=== PATIENT | female | born 1945 | race Caucasian/White ===

== ENCOUNTER → 2018-02-20 09:36 | Outpatient (CLI) | payer MEDICARE, OTHER, SELFPAY ==
--- NOTE | 2018-02-20 09:39 | XR_ITS ---
XR DEXA axial skeleton HISTORY: ITS.REASON: OSTEOPOROSIS, CKD 4 ORDERING PHYSICIAN: Mayco Cook PATIENT AGE: 72 years COMPARISON: 01/29/2017 FINDINGS: The BMD measured at the left femur neck is 0.610 g/cm squared with a T score of -3.0. This is considered Osteoporotic according to the World Health Organization criteria. Fracture risk is High. Treatment is advised. The left hip density has decreased by 7% compared to the previous exam. The L1 L4 density has T score of -1.9 and has increased by 2% IMPRESSION: Osteoporosis with high fracture risk. Treatment suggested. Recommend follow-up exam February 2019
[2018-02-20 12:13] LABS: Albumin Level 4.5 gm/dL (3.4-5.0); Anion Gap 14.3 mEq/L (5-15); Blood Urea Nitrogen 35 mg/dL (7-18); Carbon Dioxide 27 mmol/L (21.0-32.0); Chloride 102 mmol/L (98-107); Estimated Glomerular Filt Rate 19 ml/min (>60); GFR (African American) 23 ML/MIN (>60); Glucose 158 mg/dL (74-106); Phosphorous 4.1 mg/dL (2.4-4.9); Potassium 4.3 mmoL/L (3.5-5.1); Sodium 139 mmol/L (136-145)
[2018-02-21 18:28] LABS: Vitamin D 25 Hydroxy 38.7 ng/mL (30.0-100.0)
[2018-02-24 08:29] LABS: Calcium, Ionized 5.5 mg/dL (4.5-5.6); Parathyroid Hormone Intact 22 pg/mL (15-65); Tandem-R Ostase 17.4 ug/L (.)
== END ==
PROVIDERS: PCP Family Medicine; Visit Provider Internal Medicine Nephrology
DX: M81.0 Age-related osteoporosis without current pathological fracture (principal); N18.4 Chronic kidney disease, stage 4 (severe)
CPT/HCPCS: 36415; 77080; 80069; 82330; 82652; 83970; 84080

== ENCOUNTER → 2018-03-02 14:29 | Outpatient (POV) | payer MEDICARE, OTHER, SELFPAY | PROVIDERS: PCP Family Medicine; Visit Provider Internal Medicine Nephrology | DX: Z00.00 Encounter for general adult medical examination without abnormal findings (principal) ==

== ENCOUNTER 2018-03-25 10:50 | Outpatient (CLI) | payer MEDICARE, OTHER, SELFPAY ==
[2018-03-25 11:05] VITALS: BP 157/66; PULSE 65; RESP 18; TEMP 36.9; O2SAT 98
== END 2018-03-25 11:25 | disposition home or self-care (01) ==
LOC: INF 10:54
PROVIDERS: Visit Provider Internal Medicine Nephrology
DX: M81.0 Age-related osteoporosis without current pathological fracture (principal)
CPT/HCPCS: 96372; J0897

== ENCOUNTER → 2018-07-14 11:55 | Outpatient (CLI) | payer MEDICARE, SELFPAY ==
[2018-07-14 12:01] LABS: Microscopic, Urine URINE MICROSCOPIC (MICROSCOPIC)
[2018-07-14 12:32] LABS: Basophils % 0.4 % (0.1-2.0); Eosinophils # 0.2 K/mm3 (0.0-0.4); Eosinophils % 2.5 % (0.1-12.0); Hematocrit 43.8 % (37.0-47.0); Hemoglobin 13.4 g/dL (12.2-16.2); Lymphocytes # 2.7 K/mm3 (0.7-4.5); Lymphocytes % 32.9 % (10-50); Mean Corpuscular HGB Conc 30.6 g/dL (31.8-35.4); Mean Corpuscular Hemoglobin 29.8 pg (27.0-31.2); Mean Corpuscular Volume 97.3 fl (81-99); Mean Platelet Volume 7.4 fl (7.4-10.4); Monocytes # 0.6 K/mm3 (0.1-1.0); Monocytes % 7.8 % (1.7-9.3); Neutrophils # 4.6 K/mm3 (1.8-7.8); Neutrophils % 56.4 % (37.0-80.0); Platelet Count 394 K/mm3 (142-424); Red Blood Count 4.51 M/mm3 (4.20-5.40); Red Cell Distribution Width 13.8 % (11.5-17.5); White Blood Count 8.1 K/mm3 (4.8-10.8)
[2018-07-14 13:13] LABS: Appearance,Urine CLEAR (Clear); Bilirubin,Urine Negative (Negative); Blood, Urine Negative (Negative); Color,Urine YELLOW (Yellow); Glucose,Urine (UA) Negative (Negative); Ketones,Urine Negative (Negative); Leukocyte Esterase,Urine Negative (Negative); Nitrate,Urine Negative (Negative); PH,Urine 6.5 (5.0-8.5); Protein,Urine Negative (Negative); Specific Gravity, Urine <= 1.005 (1.005-1.030); Urobilinogen,Urine 0.2 EU/dl (0.2)
[2018-07-14 13:19] LABS: Creatinine,Urine Random 78 mg/dL (20-320); Total Protein,Urine Random 9.6 mg/dL (0.0-11.9)
[2018-07-14 13:25] LABS: Bacteria,Urine Trace /lpf; Squamous Epithelial Cell,Urine Occasional #/hpf (0-5)
[2018-07-14 14:24] LABS: Albumin Level 3.8 gm/dL (3.4-5.0); Anion Gap 13.3 mEq/L (5-15); Blood Urea Nitrogen 21 mg/dL (7-18); Calcium 8.9 mg/dL (8.5-10.1); Carbon Dioxide 27 mmol/L (21.0-32.0); Chloride 102 mmol/L (98-107); Creatinine,Serum 1.67 mg/dL (0.55-1.02); Estimated Glomerular Filt Rate 30 ml/min (>60); GFR (African American) 36 ML/MIN (>60); Glucose 180 mg/dL (74-106); Phosphorous 2.7 mg/dL (2.4-4.9); Potassium 4.3 mmoL/L (3.5-5.1); Sodium 138 mmol/L (136-145)
== END ==
PROVIDERS: Visit Provider Internal Medicine Nephrology
DX: N18.4 Chronic kidney disease, stage 4 (severe) (principal)
CPT/HCPCS: 36415; 80069; 81001; 82570; 84155; 85025

== ENCOUNTER → 2018-07-20 14:26 | Outpatient (POV) | payer MEDICARE, OTHER, SELFPAY | PROVIDERS: Visit Provider Internal Medicine Nephrology | DX: Z00.00 Encounter for general adult medical examination without abnormal findings (principal) ==

== ENCOUNTER → 2018-11-13 11:31 | Outpatient (CLI) | payer MEDICARE, SELFPAY ==
[2018-11-13 11:40] LABS: Microscopic, Urine URINE MICROSCOPIC (MICROSCOPIC)
[2018-11-13 12:05] LABS: Creatinine,Urine Random 40 mg/dL (20-320); Total Protein,Urine Random 12.8 mg/dL (0.0-11.9)
[2018-11-13 12:08] LABS: Basophils % 0.5 % (0.1-2.0); Eosinophils # 0.1 K/mm3 (0.0-0.4); Eosinophils % 1.3 % (0.1-12.0); Hematocrit 43.6 % (37.0-47.0); Hemoglobin 13.5 g/dL (12.2-16.2); Lymphocytes # 2.8 K/mm3 (0.7-4.5); Lymphocytes % 32.8 % (10-50); Mean Corpuscular Hemoglobin 29.7 pg (27.0-31.2); Mean Corpuscular Volume 96.1 fl (81-99); Mean Platelet Volume 7.7 fl (7.4-10.4); Monocytes # 0.5 K/mm3 (0.1-1.0); Monocytes % 6.1 % (1.7-9.3); Neutrophils # 5.1 K/mm3 (1.8-7.8); Neutrophils % 59.3 % (37.0-80.0); Platelet Count 333 K/mm3 (142-424); Red Blood Count 4.54 M/mm3 (4.20-5.40); Red Cell Distribution Width 14.4 % (11.5-17.5); White Blood Count 8.7 K/mm3 (4.8-10.8)
[2018-11-13 12:21] LABS: Appearance,Urine CLEAR (Clear); Bilirubin,Urine Negative (Negative); Blood, Urine Negative (Negative); Color,Urine STRAW (Yellow); Glucose,Urine (UA) Negative (Negative); Ketones,Urine Negative (Negative); Leukocyte Esterase,Urine 2+ (Negative); Nitrate,Urine Negative (Negative); Protein,Urine Negative (Negative); Urobilinogen,Urine 0.2 EU/dl (0.2)
[2018-11-13 12:30] LABS: Bacteria,Urine Trace /lpf; Squamous Epithelial Cell,Urine Occasional #/hpf (0-5)
[2018-11-13 13:23] LABS: Anion Gap 15.2 mEq/L (5-15); Blood Urea Nitrogen 21 mg/dL (7-18); Calcium 9.6 mg/dL (8.5-10.1); Carbon Dioxide 28 mmol/L (21.0-32.0); Chloride 102 mmol/L (98-107); Creatinine,Serum 1.53 mg/dL (0.55-1.02); Estimated Glomerular Filt Rate 33 ml/min (>60); GFR (African American) 40 ML/MIN (>60); Glucose 115 mg/dL (74-106); Phosphorous 3.9 mg/dL (2.4-4.9); Potassium 4.2 mmoL/L (3.5-5.1); Sodium 141 mmol/L (136-145)
[2018-11-14 10:48] LABS: Vitamin D 25 Hydroxy 47.1 ng/mL (30.0-100.0)
[2018-11-15 17:07] LABS: Parathyroid Hormone Intact 24 pg/mL (15-65)
[2018-11-20 06:16] LABS: Osteocalcin 29.5 ng/mL (.)
[2018-11-20 06:18] LABS: Tandem-R Ostase 26.7 ug/L (.)
== END ==
PROVIDERS: Visit Provider Internal Medicine Nephrology
DX: M81.0 Age-related osteoporosis without current pathological fracture (principal); N18.4 Chronic kidney disease, stage 4 (severe); R82.90 Unspecified abnormal findings in urine; R00.0 Tachycardia, unspecified
CPT/HCPCS: 36415; 80069; 81001; 82523; 82570; 82652; 83937; 83970; 84080; 84155; 85025; 87086; 93270

== ENCOUNTER → 2018-11-25 13:48 | Outpatient (POV) | payer MEDICARE, OTHER, SELFPAY | PROVIDERS: Visit Provider Internal Medicine Nephrology | DX: Z00.00 Encounter for general adult medical examination without abnormal findings (principal) ==

== ENCOUNTER → 2019-02-02 14:08 | Outpatient (POV) | payer MEDICARE, SELFPAY | PROVIDERS: Visit Provider Dermatology | DX: Z00.00 Encounter for general adult medical examination without abnormal findings (principal) ==

== ENCOUNTER → 2019-04-02 12:08 | Outpatient (CLI) | payer MEDICARE, SELFPAY ==
--- NOTE | 2019-04-02 12:14 | XR_ITS ---
PROCEDURE: XR ANKLE LT MIN 3V CLINICAL INDICATION: LT ANKLE PAIN injury 3 weeks ago COMPARISON: No exams were available for comparison FINDINGS: The medial and lateral malleolus appear intact. There is no evidence of acute or old fracture. The ankle mortise is grossly normal. There is mild diffuse soft tissue swelling about the ankle both medially and laterally. There are small spurs of the calcaneus at the insertion of the plantar tendon and Achilles tendon. IMPRESSION: Mild soft tissue swelling, small calcaneal spurs as noted Dictated by: Dr. Madhav Oropeza MD 04/02/2019 12:[address] Madhav Oropeza MD in [place] 04/02/2019 12:31
== END ==
PROVIDERS: PCP Family Medicine; Visit Provider Family Medicine
DX: M25.572 Pain in left ankle and joints of left foot (principal)
CPT/HCPCS: 73610

== ENCOUNTER → 2019-05-03 10:42 | Outpatient (CLI) | payer MEDICARE, SELFPAY ==
--- NOTE | 2019-05-03 10:48 | CA_ITS ---
APPROVED REPORT Division Operations Manager: RACHEL Laterality: Bilateral Study Quality: Good Indications: CVA/TIA: , Carotid stenosis Doppler Spectral Velocity Analysis dICA (R) 64.20/14.50 cm/s dICA (L) 94.40/27.90 cm/s Tanner (R) 107.00/23.90 cm/s Tanner (L) 86.10/20.30 cm/s pICA (R) 99.70/20.80 cm/s pICA (L) 63.70/12.40 cm/s dCCA (R) 67.40/14.10 cm/s dCCA (L) 64.00/11.90 cm/s pCCA (R) 83.40/14.40 cm/s pCCA (L) 104.80/18.70 cm/s Vert (R) 36.50/8.40 cm/s Vert (L) 29.50/4.90 cm/s ICA/CCA 1.59 ICA/CCA 1.48 Findings Duplex evaluation demonstrates stenosis of the right proximal internal carotid artery <20% with PSV <140 cm/sec, EDV <100 cm/sec, and IC/CC Ratio <4.0.Duplex evaluation demonstrates stenosis of the left proximal internal carotid artery <20% with PSV <140 cm/sec, EDV <100 cm/sec, and IC/CC Ratio <4.0.Antegrade flow seen bilateral vertebral arteries. Conclusion No increased velocities to suggest hemodynamically significant stenosis in either internal carotid artery. Electronically signed by : Cain Millard MD 05/05/2019 19:17:44
== END ==
PROVIDERS: PCP Family Medicine; Visit Provider Family Medicine
DX: R42 Dizziness and giddiness (principal); I65.23 Occlusion and stenosis of bilateral carotid arteries; Z86.73 Personal history of transient ischemic attack (TIA), and cerebral infarction without residual deficits
CPT/HCPCS: 93880

== ENCOUNTER → 2020-01-17 08:38 | Outpatient (CLI) | payer MEDICARE, SELFPAY ==
--- NOTE | 2020-01-17 08:41 | XR_ITS ---
PROCEDURE: XR DEXA AXIAL SKELETON CLINICAL HISTORY: OSTEOPOROSIS COMPARISON: CR,DX DEXAAX XR DEXA axial skeleton from 02/20/2018 FINDINGS: The right forearm BMD is 0.419 with a t-score of -4.6. The left hip BMD is 0.520 with a t-score of -3.0. The lumbar spine BMD is 0.788 with a t-score of -2.4. Previously the T-score of the lumbar spine with -1.9, left femoral neck -3.0, radius 33 percent -4.4 IMPRESSION: Osteoporosis. High fracture risk. Treatment advised. Suggest follow-up exam in 1 year. Overall the bone marrow density is slightly decreased compared to the previous exam Dictated b Cain Millard MD 01/18/2020 12:22 Cain Millard MD in [place] 01/18/2020 12:22
== END ==
PROVIDERS: PCP Family Medicine; Visit Provider Internal Medicine Nephrology
DX: M81.0 Age-related osteoporosis without current pathological fracture (principal)
CPT/HCPCS: 77080

== ENCOUNTER → 2020-04-13 15:31 | Outpatient (CLI) | payer MEDICARE, SELFPAY ==
[2020-04-13 15:37] LABS: Microscopic, Urine URINE MICROSCOPIC (MICROSCOPIC)
[2020-04-13 16:08] LABS: Appearance,Urine CLEAR (Clear); Bilirubin,Urine Negative (Negative); Blood, Urine Negative (Negative); Color,Urine YELLOW (Yellow); Glucose,Urine (UA) Negative (Negative); Ketones,Urine Negative (Negative); Leukocyte Esterase,Urine 2+ (Negative); Nitrate,Urine Negative (Negative); Protein,Urine Negative (Negative); Urobilinogen,Urine 0.2 EU/dl (0.2)
[2020-04-13 16:15] LABS: Bacteria,Urine 1+ /lpf
[2020-04-13 16:18] LABS: Creatinine,Urine Random 13 mg/dL (Not Estab.)
[2020-04-13 16:56] LABS: Albumin Level 4.8 g/dl (3.5-5.0); Anion Gap 14.8 mEq/L (5-15); Blood Urea Nitrogen 21 mg/dl (7-17); Carbon Dioxide 30 mmol/L (22.0-30.0); Chloride 99 mmol/L (98-107); Estimated Glomerular Filt Rate 40 ml/min (>60); GFR (African American) 48 ML/MIN (>60); Glucose 76 mg/dl (74-100); Phosphorous 4.3 mg/dl (2.5-4.5); Potassium 3.8 mmoL/L (3.5-5.1); Sodium 140 mmol/L (136-145)
[2020-04-13 16:57] LABS: Basophils # 0.1 K/mm3 (0-0.2); Basophils % 0.7 % (0.1-2.0); Eosinophils # 0.1 K/mm3 (0.0-0.4); Eosinophils % 1.3 % (0.1-12.0); Hematocrit 43.2 % (37.0-47.0); Hemoglobin 14.3 g/dL (12.2-16.2); Lymphocytes # 3.6 K/mm3 (0.7-4.5); Lymphocytes % 37.7 % (10-50); Mean Corpuscular HGB Conc 33.2 g/dL (31.8-35.4); Mean Corpuscular Hemoglobin 30.8 pg (27.0-31.2); Mean Corpuscular Volume 92.9 fl (81-99); Monocytes # 0.8 K/mm3 (0.1-1.0); Monocytes % 8.6 % (1.7-9.3); Neutrophils # 4.9 K/mm3 (1.8-7.8); Neutrophils % 51.7 % (37.0-80.0); Platelet Count 374 K/mm3 (142-424); Red Blood Count 4.65 M/mm3 (4.20-5.40); Red Cell Distribution Width 14.6 % (11.5-17.5); White Blood Count 9.4 K/mm3 (4.8-10.8)
[2020-04-13 17:13] LABS: 25-OH Vitamin D, Total 69.6 ng/mL (30-100)
[2020-04-18 08:39] LABS: Tandem-R Ostase 32.3 ug/L (.)
== END ==
PROVIDERS: Visit Provider Internal Medicine Nephrology
DX: N18.4 Chronic kidney disease, stage 4 (severe) (principal); M81.0 Age-related osteoporosis without current pathological fracture; R82.90 Unspecified abnormal findings in urine
CPT/HCPCS: 36415; 80069; 81001; 82306; 82570; 84080; 84155; 85025; 87086

== ENCOUNTER → 2020-04-17 11:36 | Outpatient (POV) | payer MEDICARE, SELFPAY | PROVIDERS: Visit Provider Internal Medicine Nephrology | DX: Z00.00 Encounter for general adult medical examination without abnormal findings (principal) ==

== ENCOUNTER 2020-04-24 13:00 | Outpatient (RCR) | payer MEDICARE, SELFPAY | END 2020-05-08 17:35 | disposition home or self-care (01) | LOC: PT.CARL 13:00 | PROVIDERS: PCP Family Medicine; Visit Provider Orthopaedic Surgery Adult Reconstructive Orthopaedic Surgery | DX: S82.101A Unspecified fracture of upper end of right tibia, initial encounter for closed fracture (principal) | CPT/HCPCS: 97110; 97116; 97163 ==

== ENCOUNTER 2020-05-29 09:47 | Outpatient (CLI) | payer MEDICARE, SELFPAY ==
[2020-05-29 09:58] VITALS: BP 138/75; PULSE 77; RESP 18; TEMP 36.6; O2SAT 97
== END 2020-05-29 10:20 | disposition home or self-care (01) ==
LOC: INF 09:47
PROVIDERS: Visit Provider Internal Medicine Nephrology
DX: M81.0 Age-related osteoporosis without current pathological fracture (principal)
CPT/HCPCS: 96372; J0897

== ENCOUNTER → 2020-10-03 14:00 | Outpatient (POV) | payer MEDICARE, SELFPAY | PROVIDERS: Visit Provider Dermatology | DX: Z00.00 Encounter for general adult medical examination without abnormal findings (principal) ==

== ENCOUNTER → 2020-11-14 13:48 | Outpatient (CLI) | payer MEDICARE, SELFPAY ==
--- NOTE | 2020-11-14 13:50 | CT_ITS ---
PROCEDURE: CT HEAD/BRAIN WO CON CLINICAL INDICATION: VISUAL CHANGES COMPARISON: MR [facility] MRI-BRAIN W/WO from 05/05/2013 TECHNIQUE: Axial images obtained. All CT scans at the facility use one or more dose reduction, viz: automated exposure control, ma/kV adjustment per patient size (including targeted exams where dose is matched to indication, i.e. head), or iterative reconstruction technique. FINDINGS: No midline shift, mass effect, intracranial hemorrhage, hydrocephalus, or extra-axial fluid collection is evident. There is generalized atrophy with hypoattenuation of the periventricular white matter consistent with microangiopathic changes.. Old lacunar infarctions are present within the chris on the right and right basal ganglia. The calvarium has an unremarkable appearance. No mastoid effusion. No sinus air-fluid level. IMPRESSION: No acute intracranial finding Dictated by: Cain Millard MD 11/14/2020 18:19 Cain Millard MD in [place] 11/14/2020 18:19
== END ==
PROVIDERS: PCP Family Medicine; Visit Provider Family Medicine
DX: H53.8 Other visual disturbances (principal)
CPT/HCPCS: 70450

== ENCOUNTER 2020-11-27 09:46 | Outpatient (CLI) | payer MEDICARE, SELFPAY ==
[2020-11-27 10:15] VITALS: BP 135/68; PULSE 87; RESP 18; TEMP 36.4; O2SAT 95
== END 2020-11-27 10:30 | disposition home or self-care (01) ==
LOC: INF 09:46
PROVIDERS: Visit Provider Psychiatry & Neurology Neurology
DX: M81.0 Age-related osteoporosis without current pathological fracture (principal)
CPT/HCPCS: 96372; J0897

== ENCOUNTER → 2021-04-30 11:24 | Outpatient (CLI) | payer MEDICARE, SELFPAY ==
[2021-04-30 11:26] LABS: Microscopic, Urine URINE MICROSCOPIC (MICROSCOPIC)
[2021-04-30 12:02] LABS: Basophils # 0.2 K/mm3 (0-0.2); Basophils % 2.1 % (0.1-2.0); Eosinophils # 0.1 K/mm3 (0.0-0.4); Eosinophils % 1.3 % (0.1-12.0); Hemoglobin 13.6 g/dL (12.2-16.2); Lymphocytes # 2.5 K/mm3 (0.7-4.5); Lymphocytes % 34.9 % (10-50); Mean Corpuscular HGB Conc 33.1 g/dL (31.8-35.4); Mean Corpuscular Hemoglobin 31.1 pg (27.0-31.2); Mean Platelet Volume 7.5 fl (7.4-10.4); Monocytes # 0.5 K/mm3 (0.1-1.0); Monocytes % 6.6 % (1.7-9.3); Neutrophils # 3.9 K/mm3 (1.8-7.8); Neutrophils % 55.1 % (37.0-80.0); Platelet Count 394 K/mm3 (142-424); Red Blood Count 4.37 M/mm3 (4.20-5.40); White Blood Count 7.1 K/mm3 (4.8-10.8)
[2021-04-30 14:37] LABS: Appearance,Urine CLEAR (Clear); Bilirubin,Urine Negative (Negative); Blood, Urine Negative (Negative); Color,Urine YELLOW (Yellow); Glucose,Urine (UA) 3+ (Negative); Ketones,Urine Negative (Negative); Leukocyte Esterase,Urine TRACE (Negative); Nitrate,Urine Negative (Negative); Protein,Urine Negative (Negative); Specific Gravity, Urine 1.015 (1.005-1.030); Urobilinogen,Urine 0.2 EU/dl (0.2)
[2021-04-30 15:07] LABS: Bacteria,Urine Trace /lpf; WBC,Urine Occasional #/hpf (0-3)
[2021-04-30 18:32] LABS: Albumin Level 4.3 g/dl (3.5-5.0); Blood Urea Nitrogen 16 mg/dl (7-17); Calcium 9.5 mg/dl (8.4-10.2); Carbon Dioxide 30 mmol/L (22.0-30.0); Chloride 99 mmol/L (98-107); Estimated Glomerular Filt Rate 37 ml/min (>60); GFR (African American) 44 ML/MIN (>60); Glucose 260 mg/dl (74-100); Phosphorous 3.9 mg/dl (2.5-4.5); Sodium 138 mmol/L (136-145)
== END ==
PROVIDERS: Visit Provider Family Medicine
DX: N18.32 Chronic kidney disease, stage 3b (principal)
CPT/HCPCS: 36415; 80069; 81001; 84155; 85025

== ENCOUNTER → 2021-04-30 11:54 | Outpatient (POV) | payer MEDICARE, SELFPAY | PROVIDERS: Visit Provider Internal Medicine Nephrology | DX: Z00.00 Encounter for general adult medical examination without abnormal findings (principal) ==

== ENCOUNTER 2021-06-27 11:02 | Outpatient (CLI) | payer MEDICARE, SELFPAY ==
[2021-06-27 11:45] VITALS: BP 138/72; PULSE 87; RESP 18; TEMP 36.4; O2SAT 98
== END 2021-06-27 11:45 | disposition home or self-care (01) ==
LOC: INF 11:03
PROVIDERS: PCP Family Medicine; Visit Provider Internal Medicine Nephrology
DX: M81.0 Age-related osteoporosis without current pathological fracture (principal)
CPT/HCPCS: 96372; J0897

== ENCOUNTER → 2022-01-14 08:49 | Outpatient (CLI) | payer MEDICARE, SELFPAY ==
--- NOTE | 2022-01-14 08:51 | XR_ITS ---
FINAL REPORT TECHNIQUE: Bone densitometry calculations of the lumbar spine and left hip were obtained. CLINICAL HISTORY: . post menopausal FINDINGS: DEXA BONE DENSITY AXIAL SKELETON Using L1-4, the bone mineral density of the spine is 0.881 g/cm2, corresponding to T-score of -1.5. Note that these values are likely falsely elevated secondary to hypertrophic change. Using the right forearm, the bone mineral density of the distal 1/3 is 0.400 g/cm2, corresponding to a T-score of -4.9 Using the left hip, the bone mineral density of the femoral neck is 0.551 g/cm2, corresponding to a T-score of -2.7. NOTE: T-score: Standard deviation compared with peak bone mass of young adult mean. *Following the recommendations of the International Society of Bone Densitometry, classification of hip BMD is based on the lower of two T-scores; total hip or femoral neck. IMPRESSION: Osteoporosis: Lowest T-score is at or below -2.5. This patient's T-score meets the World Health Organization criteria for osteoporosis. Reviewed, Interpreted and Dictated by Chay Chowdary III, MD Transcribed by Maddie Casanova Authenticated and [facility]
== END ==
PROVIDERS: PCP Family Medicine; Visit Provider Internal Medicine Nephrology
DX: M81.0 Age-related osteoporosis without current pathological fracture (principal)
CPT/HCPCS: 77080

== ENCOUNTER → 2022-04-29 11:14 | Outpatient (CLI) | payer MEDICARE, SELFPAY ==
[2022-04-29 12:11] LABS: Creatinine,Urine Random 43 mg/dL (Not Estab.)
[2022-04-29 12:26] LABS: Albumin Level 4.4 g/dl (3.5-5.0); Anion Gap 13.7 mEq/L (5-15); Blood Urea Nitrogen 19 mg/dl (7-17); Calcium 9.9 mg/dl (8.4-10.2); Carbon Dioxide 30 mmol/L (22.0-30.0); Chloride 100 mmol/L (98-107); Estimated Glomerular Filt Rate 34 ml/min (>60); GFR (African American) 41 ML/MIN (>60); Glucose 121 mg/dl (74-100); Phosphorous 3.3 mg/dl (2.5-4.5); Potassium 3.7 mmoL/L (3.5-5.1); Sodium 140 mmol/L (136-145)
[2022-04-29 12:41] LABS: 25-OH Vitamin D, Total 49.1 ng/mL (30-100)
[2022-05-02 00:07] LABS: Tandem-R Ostase 20.4 ug/L (.)
[2022-05-02 19:09] LABS: C-Telopeptide Serum 576 pg/mL (.)
== END ==
PROVIDERS: PCP Family Medicine; Visit Provider Internal Medicine Nephrology
DX: N18.32 Chronic kidney disease, stage 3b (principal); M81.0 Age-related osteoporosis without current pathological fracture; I10 Essential (primary) hypertension
CPT/HCPCS: 36415; 80069; 82043; 82306; 82523; 82570; 84080

== ENCOUNTER → 2022-05-06 09:26 | Outpatient (POV) | payer MEDICARE, SELFPAY | PROVIDERS: Visit Provider Internal Medicine Nephrology | DX: Z00.00 Encounter for general adult medical examination without abnormal findings (principal) ==

== ENCOUNTER 2022-06-10 09:37 | Outpatient (CLI) | payer MEDICARE, SELFPAY ==
[2022-06-10 09:43] VITALS: BP 129/73; PULSE 81; RESP 18; TEMP 36.6; O2SAT 97
== END 2022-06-10 10:08 | disposition home or self-care (01) ==
LOC: INF 09:38
PROVIDERS: PCP Family Medicine; Visit Provider Internal Medicine Nephrology
DX: M81.0 Age-related osteoporosis without current pathological fracture (principal)
CPT/HCPCS: 96372; J0897

== ENCOUNTER → 2022-06-19 10:59 | Outpatient (CLI) | payer MEDICARE, SELFPAY ==
[2022-06-19 12:57] LABS: Chloride 102 mmol/L (98-107); Sodium 139 mmol/L (136-145)
[2022-06-19 13:00] LABS: Blood Urea Nitrogen 18 mg/dl (7-17); Carbon Dioxide 27 mmol/L (22.0-30.0); Estimated Glomerular Filt Rate 34 ml/min (>60); GFR (African American) 41 ML/MIN (>60)
[2022-06-19 13:01] LABS: Calcium 8.6 mg/dl (8.4-10.2); Glucose 242 mg/dl (74-100)
== END ==
PROVIDERS: PCP Family Medicine; Visit Provider Internal Medicine Nephrology
DX: M81.0 Age-related osteoporosis without current pathological fracture (principal)
CPT/HCPCS: 36415; 80048

== ENCOUNTER 2022-12-10 09:30 | Outpatient (CLI) | payer MEDICARE, SELFPAY ==
[2022-12-10 09:30] VITALS: BP 136/71; PULSE 71; RESP 18; O2SAT 99
== END 2022-12-10 09:40 | disposition home or self-care (01) ==
LOC: INF 09:31
PROVIDERS: PCP Family Medicine; Visit Provider Psychiatry & Neurology Neurology
DX: M81.0 Age-related osteoporosis without current pathological fracture (principal)
CPT/HCPCS: 96372; J0897

== ENCOUNTER → 2023-02-18 11:03 | Outpatient (CLI) | payer MEDICARE, SELFPAY ==
[2023-02-18 11:48] LABS: Albumin Level 3.8 g/dl (3.5-5.0); Chloride 102 mmol/L (98-107); Potassium 3.9 mmoL/L (3.5-5.1); Sodium 138 mmol/L (136-145)
[2023-02-18 11:51] LABS: Anion Gap 13.9 mEq/L (5-15); Blood Urea Nitrogen 24 mg/dl (7-17); Carbon Dioxide 26 mmol/L (22.0-30.0); Estimated Glomerular Filt Rate 31 ml/min (>60); GFR (African American) 38 ML/MIN (>60)
[2023-02-18 11:52] LABS: Calcium 9.4 mg/dl (8.4-10.2); Glucose 213 mg/dl (74-100); Phosphorous 3.5 mg/dl (2.5-4.5)
[2023-02-18 12:32] LABS: 25-OH Vitamin D, Total 39.6 ng/mL (30-100)
[2023-02-21 23:36] LABS: C-Telopeptide Serum 206 pg/mL (.)
[2023-02-24 14:56] LABS: Tandem-R Ostase 9.6 ug/L (.)
== END ==
PROVIDERS: PCP Family Medicine; Visit Provider Internal Medicine Nephrology
DX: N18.32 Chronic kidney disease, stage 3b (principal); M81.0 Age-related osteoporosis without current pathological fracture; I10 Essential (primary) hypertension
CPT/HCPCS: 36415; 80069; 82306; 82523; 84080

== ENCOUNTER → 2023-02-24 11:20 | Outpatient (POV) | payer MEDICARE, SELFPAY | PROVIDERS: Visit Provider Nurse Practitioner | DX: Z00.00 Encounter for general adult medical examination without abnormal findings (principal) ==

== ENCOUNTER → 2023-06-12 09:21 | Outpatient (CLI) | payer MEDICARE, SELFPAY | LOC: INF 09:23 | PROVIDERS: PCP Family Medicine; Visit Provider Internal Medicine Nephrology | DX: N28.9 Disorder of kidney and ureter, unspecified (principal) ==

== ENCOUNTER 2023-10-20 09:38 | Outpatient (CLI) | payer MEDICARE, SELFPAY ==
[2023-10-20 11:17] LABS: Blood Urea Nitrogen 16 mg/dl (7-17); Calcium 9.6 mg/dl (8.4-10.2); Carbon Dioxide 30 mmol/L (22.0-30.0); Chloride 101 mmol/L (98-107); Estimated Glomerular Filt Rate 36 ml/min (>60); GFR (African American) 44 ML/MIN (>60); Glucose 292 mg/dl (74-100); Phosphorous 3.5 mg/dl (2.5-4.5); Sodium 138 mmol/L (136-145)
[2023-10-22 20:24] LABS: C-Telopeptide Serum 653 pg/mL (.)
[2023-10-23 15:43] LABS: Serial Monitoring PDF SCANNED IMAGE
== END 2023-10-20 23:59 | disposition home or self-care (01) ==
LOC: LAB 09:42
PROVIDERS: PCP Family Medicine; Visit Provider Internal Medicine Nephrology
DX: M81.0 Age-related osteoporosis without current pathological fracture (principal); R94.4 Abnormal results of kidney function studies; R73.09 Other abnormal glucose
CPT/HCPCS: 36415; 80069; 82523; 84080

== ENCOUNTER 2023-12-01 11:27 | Outpatient (POV) | payer MEDICARE, SELFPAY | END 2023-12-01 23:59 | disposition home or self-care (01) | LOC: SC 11:28 | PROVIDERS: Visit Provider Nurse Practitioner | DX: Z00.00 Encounter for general adult medical examination without abnormal findings (principal) ==

== ENCOUNTER 2024-01-16 08:35 | Outpatient (CLI) | payer MEDICARE, SELFPAY ==
[2024-01-16 08:46] VITALS: BMI 24.5
[2024-01-16 09:25] VITALS: BP 153/66; PULSE 90; RESP 20; TEMP 36.3; O2SAT 97
[2024-01-16] MEDS: DENOSUMAB 60 MG/ML SYRINGE SQ (09:25)
[2024-01-16 09:28] LABS: Alanine Aminotransferase 28 U/L (12-78); Albumin Level 4.4 g/dl (3.5-5.0); Albumin/Globulin Ratio 1.4 (1.1-1.8); Alkaline Phosphatase 89 U/L (38-126); Anion Gap 8.1 mEq/L (5-15); Aspartate Amino Transferase 39 U/L (14-36); Bilirubin,Total 0.7 mg/dl (0.2-1.3); Blood Urea Nitrogen 26 mg/dl (7-17); Calcium 9.8 mg/dl (8.4-10.2); Carbon Dioxide 32 mmol/L (22.0-30.0); Chloride 103 mmol/L (98-107); Creatinine Clearance Estimated 24 mL/min (50-200); Estimated Glomerular Filt Rate 24 ml/min (>60); GFR (African American) 29 ML/MIN (>60); Globulin 3.1 g/dL (1.3-3.2); Glucose 147 mg/dl (74-100); Phosphorous 4.1 mg/dl (2.5-4.5); Potassium 4.1 mmoL/L (3.5-5.1); Sodium 139 mmol/L (136-145); Total Protein,Serum 7.5 g/dl (6.3-8.2)
[2024-01-16 11:21] LABS: 25-OH Vitamin D, Total 46.8 ng/mL (30-100)
[2024-01-20 02:28] LABS: Tandem-R Ostase 22.2 ug/L (.)
[2024-02-04 14:56] LABS: Serial Monitoring PDF SCANNED IMAGE
== END 2024-01-16 09:50 | disposition home or self-care (01) ==
PROVIDERS: PCP Family Medicine; Visit Provider Nurse Practitioner
DX: M81.0 Age-related osteoporosis without current pathological fracture (principal)
CPT/HCPCS: 80053; 80069; 82306; 84080; 96372; J0897

== ENCOUNTER 2024-01-21 08:41 | Outpatient (CLI) | payer MEDICARE, SELFPAY ==
--- NOTE | 2024-01-21 08:48 | XR_ITS ---
FINAL REPORT TECHNIQUE: Bone densitometry calculations of the lumbar spine and left hip were obtained. CLINICAL HISTORY: SCREENING COMPARISON: 01/14/2022 FINDINGS: Using L1-4, the bone mineral density of the spine is 0.809 g/cm2, corresponding to T-score of -2.2. Using the left hip, the bone mineral density of the femoral neck is 0.592 g/cm2, corresponding to a T-score of -2.9. Using the right forearm, the bone mineral density of the mid is 0.401 g/cm?, corresponding to a T-score of -4.9. NOTE: T-score: Standard deviation compared with peak bone mass of young adult mean. *Following the recommendations of the International Society of Bone Densitometry, classification of hip BMD is based on the lower of two T-scores; total hip or femoral neck. IMPRESSION: Osteoporosis: Lowest T-score is at or below -2.5. This patient''s T-score meets the World Health Organization criteria for osteoporosis. Reviewed, Interpreted and Dictated by Chay Chowdary III, MD Transcribed by Mckenzie Gonzalez Authenticated and [facility]
[2024-01-21 10:16] LABS: Alanine Aminotransferase 29 U/L (12-78); Albumin Level 3.8 g/dl (3.5-5.0); Albumin/Globulin Ratio 1.3 (1.1-1.8); Alkaline Phosphatase 82 U/L (38-126); Anion Gap 11.9 mEq/L (5-15); Aspartate Amino Transferase 38 U/L (14-36); Bilirubin,Total 0.5 mg/dl (0.2-1.3); Blood Urea Nitrogen 20 mg/dl (7-17); Calcium 8.4 mg/dl (8.4-10.2); Carbon Dioxide 25 mmol/L (22.0-30.0); Chloride 105 mmol/L (98-107); Estimated Glomerular Filt Rate 34 ml/min (>60); GFR (African American) 41 ML/MIN (>60); Globulin 2.9 g/dL (1.3-3.2); Glucose 231 mg/dl (74-100); Phosphorous 2.8 mg/dl (2.5-4.5); Potassium 3.9 mmoL/L (3.5-5.1); Sodium 138 mmol/L (136-145); Total Protein,Serum 6.7 g/dl (6.3-8.2)
[2024-01-21 13:58] LABS: 25-OH Vitamin D, Total 38.7 ng/mL (30-100)
[2024-01-22 16:13] LABS: Alkaline Phosphatase 86 IU/L (44-121); Bone Fraction: 47 % (14-68); Intestinal Frac.: 8 % (0-18); Liver Fraction: 45 % (18-85)
== END 2024-01-21 23:59 | disposition home or self-care (01) ==
LOC: RAD 08:42
PROVIDERS: PCP Family Medicine; Visit Provider Nurse Practitioner
DX: M81.0 Age-related osteoporosis without current pathological fracture (principal); E11.9 Type 2 diabetes mellitus without complications; Z79.4 Long term (current) use of insulin; Z79.899 Other long term (current) drug therapy
CPT/HCPCS: 36415; 77080; 80053; 80069; 82306; 84075; 84080

== ENCOUNTER 2024-04-05 15:01 | Emergency (ER) | payer MEDICARE, SELFPAY ==
--- NOTE | 2024-04-05 15:17 | XR_ITS ---
PROCEDURE INFORMATION: Exam: XR Left Elbow Exam date and time: 04/05/2024 3:43 PM Age: 79 years old Clinical indication: Injury or trauma; Fall; Other: Pain; Additional info: Fall, olecranon pain TECHNIQUE: Imaging protocol: Radiologic exam of the left elbow. Views: 3 or more views. COMPARISON: CR XR ELBOW LT MIN 3V 04/05/2024 3:43 PM FINDINGS: Bones/joints: No acute fracture is seen radiographically. On oblique frontal view, there is an apparent linear lucency through the trochlea which is felt to reflect a skin fold. No dislocation is seen. Soft tissues: There is apparent mild elevation of the anterior pad of the elbow. In the setting of trauma, this is highly indicative of an occult fracture. IMPRESSION: 1. No acute fracture or dislocation is seen. 2. Apparent mild elevation of the anterior pad of the elbow. In the setting of trauma, this is highly indicative of an occult fracture.
--- NOTE | 2024-04-05 15:17 | CT_ITS ---
PROCEDURE INFORMATION: Exam: CT Head Without Contrast Exam date and time: 04/05/2024 3:46 PM Age: 79 years old Clinical indication: Injury or trauma; Fall; Other: Pain; Additional info: Fell, hit head TECHNIQUE: Imaging protocol: Computed tomography of the head without contrast. Radiation optimization: All CT scans at this facility use at least one of these dose optimization techniques: automated exposure control; mA and/or kV adjustment per patient size (includes targeted exams where dose is matched to clinical indication); or iterative reconstruction. COMPARISON: CT HEAD/BRAIN WO CON 04/05/2024 3:46 PM FINDINGS: Brain: There are global involutional changes of the brain which are in keeping with the patient's age. Periventricular hypodensities are nonspecific but most likely reflect chronic microvascular ischemic disease. No acute intracranial hemorrhage, mass effect or midline shift. There is chronic encephalomalacia in the left posterior cerebellum. Old lacunar infarcts are again noted in the right central chris and right ganglial capsular region. Cerebral ventricles: No ventriculomegaly. Paranasal sinuses: The visualized sinuses are unremarkable. Mastoid air cells: There is no mastoid effusion detected. Bones: Unremarkable. No acute fracture. Soft tissues: Unremarkable. Vasculature: Atherosclerotic vascular disease is noted at the level of the skull base. IMPRESSION: 1. No acute intracranial hemorrhage, mass effect or midline shift. 2. Involutional changes of the brain in keeping with the patient's age, with findings of chronic microvascular ischemic disease.
--- NOTE | 2024-04-05 15:17 | XR_ITS ---
PROCEDURE INFORMATION: Exam: XR Right Elbow Exam date and time: 04/05/2024 3:43 PM Age: 79 years old Clinical indication: Injury or trauma; Fall; Other: Pain; Additional info: Fall, olecranon pain TECHNIQUE: Imaging protocol: Radiologic exam of the right elbow. Views: 3 or more views. COMPARISON: CR XR ELBOW RT MIN 3V 04/05/2024 3:43 PM FINDINGS: Bones/joints: Alignment is normal. The radial head and neck are normal in contour. The coronoid and olecranon processes are intact. The distal humerus appears intact. No fracture is visualized. No destructive osseous lesions are seen. No definite elbow effusion is seen. Soft tissues: Normal. IMPRESSION: No acute radiographic abnormality of the elbow.
--- NOTE | 2024-04-05 15:17 | CT_ITS ---
PROCEDURE INFORMATION: Exam: CT Cervical Spine Without Contrast Exam date and time: 04/05/2024 3:46 PM Age: 79 years old Clinical indication: Injury or trauma; Fall; Other: Pain; Additional info: Fell struck head, neck pain on left TECHNIQUE: Imaging protocol: Computed tomography of the cervical spine without contrast. Radiation optimization: All CT scans at this facility use at least one of these dose optimization techniques: automated exposure control; mA and/or kV adjustment per patient size (includes targeted exams where dose is matched to clinical indication); or iterative reconstruction. COMPARISON: CT HEAD/BRAIN WO CON 04/05/2024 3:46 PM FINDINGS: Bones: There is right convexity of the cervical spine, with severe facet arthropathy on the left at C3-C4 and C4-C5. There is no anterior wedging deformity. No acute lucent fracture lines are visualized. Spondylitic changes are seen at C5-C6 and C6-C7 levels. There is no severe central canal stenosis. Neural foraminal stenosis is seen at the C5-C6 and C6-C7 levels. Pharynx: Incidentally noted is asymmetric soft tissue fullness in the right vallecula. This may reflect retained mucus secretions, but correlation with direct visualization is recommended in order to exclude a mucosal lesion in this location. Lungs: Lung apices are normal. Soft tissues: Unremarkable. IMPRESSION: 1. No acute cervical spinal injury demonstrated by CT. 2. Degenerative changes of the cervical. 3. Incidentally noted is asymmetric soft tissue fullness in the right vallecula. This may reflect retained mucus secretions, but correlation with direct visualization is recommended in order to exclude a mucosal lesion in this location.
[2024-04-05 15:25] VITALS: BP 157/84; PULSE 83; RESP 16; TEMP 36.8; O2SAT 95; BMI 25.7
--- NOTE | 2024-04-05 15:30 | HMH.EDGENADL ---
Discharge Plan Disposition Patient Disposition: Home, Self-Care Chief Complaint: Fall Prescriptions Prescriptions: No Action furosemide 40 mg tablet 40 mg PO DAILY metoprolol tartrate 25 mg tablet 25 mg PO DAILY amitriptyline 50 mg tablet 50 mg PO DAILY amlodipine 5 mg tablet 5 mg PO DAILY cephalexin 500 mg capsule 500 mg PO QID 10 Days Qty: 40 0RF Humulin 70/30 U-100 KwikPen 100 UNIT/ML insulin pen 35 unit SQ DAILY Rx Instructions: 35 units QAM metoprolol tartrate 50 MG tablet 25 mg PO BID famotidine 20 MG tablet 20 mg PO BID apixaban 5 MG tablet 5 mg PO BID dronedarone 400 MG tablet 400 mg PO DAILY rosuvastatin 20 MG tablet 20 mg PO DAILY insulin NPH and regular human 100 UNIT/ML insulin pen 30 unit SQ HS Rx Instructions: 30 units QHS Referrals Follow up/Referrals: Tyler White MD [Primary Care Provider] - See instructions Activity Restrictions/Add. Instructions Additional Instructions/Restrictions: Call your family doctor to establish care for this visit to the emergency department and schedule follow-up within 48 hours to ensure improvement. If you have any worsening of your condition or any other concerning signs or symptoms, return to the emergency department or your primary care doctor for further evaluation. Clinical Impressions Clinical Impression: CHI (closed head injury) Print Language Print Language: Cook Islander Discharge ED Provider: Mason Laboy General Adult HPI General Chief complaint: Fall Stated complaint: AO 04/05/24 14:00, fell and hit head Time Seen by Provider: 04/05/24 15:06 History of Present Illness HPI narrative: Please note that above description of symptoms, in this electronic medical record under categorization of recalled from ER triage doctor by RN are reflective of an initial nursing assessment, however, is not reflective of my full history and physical exam that was personally taken and clarified. Consequentially, this preceding description of symptoms, which may include the patient's categorized chief complaint in the EMR, do not reflect my personal clinical impression, and the ultimate description of history of present illness and patient stated complaints should be deferred to this section of the note. Unless stated otherwise or congruent with this section of the note, additional signs, symptoms, or incongruence should be interpreted as inaccurate with my clinical impression. Related Data Home Medications ?Medication ?Instructions ?Recorded ?Confirmed insulin NPH-regular 70-30 U-100 35 unit SQ DAILY Diabetes 03/25/18 02/25/24 insulin 100 unit/mL subcutaneous pen (Humulin 70/30 U-100 KwikPen) apixaban 5 mg tablet 5 mg PO BID Blood thinner 05/29/20 02/25/24 dronedarone 400 mg tablet 400 mg PO DAILY Heart rhythm 05/29/20 02/25/24 famotidine 20 mg tablet 20 mg PO BID GERD 05/29/20 02/25/24 metoprolol tartrate 50 mg tablet 25 mg PO BID High blood pressure 05/29/20 02/25/24 rosuvastatin 20 mg tablet 20 mg PO DAILY Cholesterol 05/29/20 02/25/24 insulin NPH-regular 70-30 U-100 30 unit SQ HS Diabetes 11/27/20 02/25/24 insulin 100 unit/mL subcutaneous pen amitriptyline 50 mg tablet 50 mg PO DAILY 02/09/24 02/25/24 amlodipine 5 mg tablet 5 mg PO DAILY 02/09/24 02/25/24 furosemide 40 mg tablet 40 mg PO DAILY 02/09/24 02/25/24 metoprolol tartrate 25 mg tablet 25 mg PO DAILY 02/09/24 02/25/24 Previous Rx's ?Medication ?Instructions ?Recorded cephalexin 500 mg capsule 500 mg PO QID 10 days #40 caps 02/25/24 Allergies Allergy/AdvReac Type Severity Reaction Status Date / Time Penicillins [PENICILLINS] Allergy Unknown Hives Verified 04/05/24 15:41 Sulfa (Sulfonamide Allergy Unknown Hives Verified 04/05/24 15:41 Antibiotics) [SULFA (SULFONAMIDE ANTIBIOTICS)] [facility] Disclaimer: The information contained in this section may have been updated after the patient was seen, as this information can be updated by other users. Medical History Osteoporosis GERD (gastroesophageal reflux disease) Renal insufficiency HLD (hyperlipidemia) HTN (hypertension) Anxiety and depression Diabetes mellitus Surgical History Fracture of right lower leg History of total replacement of right hip Family History Other No significant family history Social History Smoking Status: Never smoker alcohol intake: never current occupational status: retired Travel in the last 8 weeks: None household members: spouse housing: house caffeine: Yes Other Medical History Have you received the Pneumonia Vaccine: Yes ROS Obtained: Yes All systems reviewed & no additional complaints except as documented Physical Exam General General appearance: alert Head Head exam: normocephalic and other (Superficial skin abrasions left side parietal scalp) Eye Eye exam: Present normal appearance, PERRL and EOMI Neck Neck exam: Present normal inspection, full ROM and trachea midline Respiratory Respiratory exam: Absent respiratory distress, wheezes, stridor, accessory muscle use or prolonged expiratory phase Cardiovascular Cardiovascular exam: Present other (Pulses equal symmetric in upper and lower extremities) Abdominal Exam Abdominal exam: Present soft; Absent distention, tenderness or pulsatile mass Extremities Exam Extremities exam: Absent edema Neurological Exam Neurological exam: Present alert, oriented X3 and CN II-XII intact; Absent motor sensory deficit Skin Skin exam: Present warm and dry; Absent diaphoresis or erythema Medical Decision Making Medical Records Medical records reviewed: Yes I reviewed the patient's medical records. Screening: Per USPSTF and CDC recommendations, given the prevalence of disease in our region, it is our hospital?s policy to screen for HIV and viral Hepatitis for all patients aged 18 and over and those with ongoing risk factors. Gustavo Inquiry Pt receiving controlled substance: No Gustavo was queried for this patient: No Vital Signs: 04/05/24 15:25 04/05/24 15:53 04/05/24 16:01 Temperature 98.3 F Temperature Source Oral Pulse Rate 73 74 Pulse Rate [Left] 83 Respiratory Rate 16 Blood Pressure 162/108 H 146/74 H Blood Pressure [Right Arm] 157/84 H Blood Pressure Mean [Right Arm] 108 Blood Pressure Source [Right Arm] Automatic Cuff Blood Pressure Position [Right Arm] Sitting 02 Sat by Pulse Oximetry 95 97 95 Oxygen Delivery Method Room Air Room Air Room Air 04/05/24 16:30 04/05/24 17:00 Temperature Temperature Source Pulse Rate 65 67 Pulse Rate [Left] Respiratory Rate Blood Pressure 144/77 H 156/76 H Blood Pressure [Right Arm] Blood Pressure Mean [Right Arm] Blood Pressure Source [Right Arm] Blood Pressure Position [Right Arm] 02 Sat by Pulse Oximetry 93 L 93 L Oxygen Delivery Method Room Air Room Air Orders (Tests/Meds): ORDERS Category Date Time Status CT cervical spine wo con Stat Cat Scan 04/05/24 15:[address] head/brain wo con Stat Cat Scan 04/05/24 15:17 Completed Elbow XR left mininum 3 views [XR elbow LT min 3V] Stat Exams 04/05/24 15:17 Completed Elbow XR right minimum 3 views [XR elbow RT min 3V] Exams 04/05/24 15:17 Completed Stat Medical Decision Narrative: 79-year-old female history of hypertension, hyperlipidemia, A-fib status post ablation, CHF with pacemaker defibrillator in place currently on Eliquis presenting with fall. Patient states right for arrival, she was walking down a ramp, stepped off the side of the ramp less than 6 inches, tripped, hit her head against a concrete wall. Did not lose consciousness. [place] pain immediately in the left side of her neck, no posterior midline pain. States that she is currently having a headache that is mild in intensity after taking 1000 mg Tylenol at home. She states right now that her pain is not bad, but her head feels heavy. Able to ambulate without issue, no lower extremity pain. But she did hit both of her elbows when she went down and is having pain in the posterior aspect of both of her elbows. Range of motion is intact. No other relevant history. History obtained with patient. On arrival, patient very well-appearing. She ambulated from the wheelchair to the stretcher without issue. Superficial abrasions overlying olecranon's bilateral elbows. No obvious deformity. Neurovascular intact with range of motion intact. Patient has superficial abrasion overlying left parietal scalp. No laceration amenable to closure. Left-sided paraspinal muscular neck tenderness, no midline spinal tenderness. Differential includes intracranial bleed, critical cervical spine injury, musculoskeletal strain, fracture, among others. Patient took Tylenol prior to arrival, minimal symptoms at this time. Meds were considered, but not deemed necessary. CT head, C-spine, x-rays of the elbows were obtained. On independent interpretation, these demonstrated no acute intracranial bleed or cervical spine injury. X-rays of the upper extremities without bony abnormality or fracture. Radiology called questionable occult supracondylar fracture, on physical exam on reevaluation, patient has absolutely no tenderness. Pressure applied proximally and distally to various aspects of humerus, no tenderness, laxity, deformity, or reproduction of pain. I do not think this represents occult fracture. Because patient at baseline without signs or symptoms of clinical decompensation, deemed appropriate for discharge. Results were relayed to patient who voiced understanding and were agreeable to outpatient management and follow up. I discussed my clinical impression with patient and answered all questions. At this time, the evidence for any other entities in the differential is insufficient to warrant any further testing or ED observation. This was explained as well. Advisory was given that persistent or worsening symptoms require further evaluation. I confirmed the understanding of this discussion. Veterans Service Officer disclaimer Much of this encounter note is an electronic therapeutic recreation assistant spoken language to printed text. Electronic therapeutic recreation assistant of the spoken language may permit errors. Although I have reviewed the note, some errors may still exist. Critical Care Critical Care Time Critical Care Time: No
[2024-04-05 15:53] VITALS: BP 162/108; PULSE 73; O2SAT 97
[2024-04-05 16:01] VITALS: BP 146/74; PULSE 74; O2SAT 95
[2024-04-05 16:30] VITALS: BP 144/77; PULSE 65; O2SAT 93
[2024-04-05 17:00] VITALS: BP 156/76; PULSE 67; O2SAT 93
--- NOTE | 2024-04-05 17:17 | PC.NURSE ---
dr dixon at bedside
[2024-04-05 17:25] VITALS: BP 152/75; PULSE 68; RESP 16; TEMP 36.7; O2SAT 94
== END 2024-04-05 17:26 | disposition home or self-care (01) ==
PROVIDERS: Emergency Provider Emergency Medicine; PCP Family Medicine
DX: S09.90XA Unspecified injury of head, initial encounter (principal); R51.9 Headache, unspecified; M54.2 Cervicalgia; W01.198A Fall on same level from slipping, tripping and stumbling with subsequent striking against other object, initial encounter; Y93.89 Activity, other specified; Y92.9 Unspecified place or not applicable
CPT/HCPCS: 70450; 72125; 73080; 99284

== ENCOUNTER 2024-04-09 10:55 | Outpatient (CLI) | payer MEDICARE, SELFPAY ==
--- NOTE | 2024-04-09 11:00 | XR_ITS ---
PROCEDURE INFORMATION: Exam: XR Left Elbow Exam date and time: 04/09/2024 11:10 AM Age: 79 years old Clinical indication: Injury or trauma; Fall; Blunt trauma (contusions or hematomas); Elbow; Left; Additional info: Possible occult fracture left elbow TECHNIQUE: Imaging protocol: Radiologic exam of the left elbow. Views: 3 or more views. COMPARISON: CR XR ELBOW LT MIN 3V 04/05/2024 3:43 PM FINDINGS: Bones/joints: No acute fracture or malalignment. No worrisome lytic or blastic osseous lesion. No appreciable cortical erosion or periosteal reaction. Joint spaces are preserved. Soft tissues: Mild medial and dorsal soft tissue swelling. No joint effusion. IMPRESSION: No acute fracture or malaligment.
== END 2024-04-09 23:59 | disposition home or self-care (01) ==
LOC: RAD 10:55
PROVIDERS: PCP Family Medicine; Visit Provider Family Medicine
DX: M25.522 Pain in left elbow (principal)
CPT/HCPCS: 73080

== ENCOUNTER 2024-08-18 10:10 | Outpatient (CLI) | payer MEDICARE, SELFPAY ==
[2024-08-18 17:10] LABS: Basophils # 0.1 K/mm3 (0-0.2); Basophils % 0.6 % (0.1-2.0); Eosinophils # 0.1 K/mm3 (0.0-0.4); Hematocrit 44.2 % (37.0-47.0); Hemoglobin 14.3 g/dL (12.2-16.2); Lymphocytes # 3.2 K/mm3 (0.7-4.5); Lymphocytes % 38.3 % (10-50); Mean Corpuscular HGB Conc 32.4 g/dL (31.8-35.4); Mean Corpuscular Hemoglobin 29.4 pg (27.0-31.2); Mean Corpuscular Volume 90.8 fl (81-99); Mean Platelet Volume 10.3 fl (7.4-10.4); Monocytes # 0.9 K/mm3 (0.1-1.0); Monocytes % 10.9 % (1.7-9.3); Neutrophils # 4.1 K/mm3 (1.8-7.8); Platelet Count 288 K/mm3 (142-424); Red Blood Count 4.87 M/mm3 (4.20-5.40); Red Cell Distribution Width 14.8 % (11.5-17.5); White Blood Count 8.3 K/mm3 (4.8-10.8)
[2024-08-18 19:07] LABS: Alanine Aminotransferase 28 U/L (12-78); Albumin Level 4.6 g/dl (3.5-5.0); Albumin/Globulin Ratio 1.7 (1.1-1.8); Alkaline Phosphatase 78 U/L (38-126); Anion Gap 14.8 mEq/L (5-15); Aspartate Amino Transferase 38 U/L (14-36); Bilirubin,Total 0.6 mg/dl (0.2-1.3); Blood Urea Nitrogen 27 mg/dl (7-17); Calcium 9.9 mg/dl (8.4-10.2); Carbon Dioxide 26 mmol/L (22.0-30.0); Chloride 102 mmol/L (98-107); Chol/HDL Ratio 2.7 (1-3.5); Cholesterol 136 mg/dl (140-200); Estimated Glomerular Filt Rate 31 ml/min (>60); GFR (African American) 38 ML/MIN (>60); Globulin 2.7 g/dL (1.3-3.2); Glucose 142 mg/dl (74-100); HDL Cholesterol 51 mg/dl (40-60); Potassium 3.8 mmoL/L (3.5-5.1); Sodium 139 mmol/L (136-145); Total Protein,Serum 7.3 g/dl (6.3-8.2); Triglycerides 125 mg/dl (30-150); VLDL Cholesterol 25 mg/dL (0-40)
[2024-08-18 19:17] LABS: Direct LDL Cholesterol 58.48 mg/dL (100-129)
[2024-08-18 19:37] LABS: Thyroid Stimulating Hormone 2.23 uIU/mL (0.465-4.68)
[2024-08-18 19:57] LABS: HIV Combo NEGATIVE (Negative)
[2024-08-18 20:04] LABS: Hepatitis C Ab Qual. W/ RFX NEGATIVE (Negative)
[2024-08-18 23:05] LABS: Hemoglobin A1C 7.9 % (4.0-6.0)
== END 2024-08-18 23:59 | disposition home or self-care (01) ==
LOC: LAB.DROPOF 08-19 13:45
PROVIDERS: PCP Family Medicine; Visit Provider Family Medicine
DX: Z11.4 Encounter for screening for human immunodeficiency virus [HIV] (principal); Z11.59 Encounter for screening for other viral diseases; E11.9 Type 2 diabetes mellitus without complications; E78.5 Hyperlipidemia, unspecified; Z79.84 Long term (current) use of oral hypoglycemic drugs
CPT/HCPCS: 80053; 80061; 83036; 84443; 85025; 86803; 87389

== ENCOUNTER 2024-10-14 12:16 | Outpatient (CLI) | payer MEDICARE, SELFPAY ==
--- NOTE | 2024-10-14 12:20 | XR_ITS ---
FINAL REPORT CLINICAL HISTORY: Right Knee Pain COMPARISON: None FINDINGS: Three views of the right knee were obtained. There is a sideplate and screws securing the proximal tibia. There is no acute fracture or dislocation. Mild and moderate hypertrophic changes are noted at the joint margins. There is a moderate joint effusion. Soft tissues are unremarkable. IMPRESSION: Postsurgical changes and moderate joint effusion with no acute bony abnormality. Reviewed, Interpreted and Dictated by Mayco Hodgson MD Transcribed by Emy Arreola Authenticated and [facility]
== END 2024-10-14 23:59 | disposition home or self-care (01) ==
LOC: RAD 12:17
PROVIDERS: PCP Family Medicine; Visit Provider Physician Assistant Surgical
DX: M25.561 Pain in right knee (principal)
CPT/HCPCS: 73562

== ENCOUNTER 2024-12-14 12:44 | Outpatient (CLI) | payer MEDICARE, SELFPAY ==
[2024-12-14 21:46] LABS: Hematocrit 43.5 % (37.0-47.0); Hemoglobin 13.9 g/dL (12.2-16.2); Immature Granulocytes % 0.1 %; Mean Corpuscular HGB Conc 32.0 g/dL (31.8-35.4); Mean Corpuscular Hemoglobin 29.9 pg (27.0-31.2); Mean Corpuscular Volume 93.5 fl (81-99); Nucleated Red Blood Cells % 0 %; Platelet Count 320 K/mm3 (142-424); Red Blood Count 4.65 M/mm3 (4.20-5.40); Red Cell Distribution Width-SD 48.5 fL; White Blood Count 6.8 K/mm3 (4.8-10.8)
[2024-12-14 22:22] LABS: Anion Gap 18.4 mEq/L (5-15); Blood Urea Nitrogen 23 mg/dl (7-17); Calcium 8.9 mg/dl (8.4-10.2); Carbon Dioxide 29 mmol/L (22.0-30.0); Chloride 95 mmol/L (98-107); Creatinine,Serum 1.30 mg/dl (0.52-1.04); Estimated Glomerular Filt Rate 40 ml/min (>60); GFR (African American) 48 ML/MIN (>60); Potassium 4.4 mmoL/L (3.5-5.1); Sodium 138 mmol/L (136-145)
[2024-12-15 11:37] LABS: Glucose 76 mg/dl (74-100)
[2024-12-16 08:49] LABS: Hepatitis B Surface Antigen Negative (Negative)
--- OUTSIDE RECORDS SUMMARY | 2024-12-16 12:48 | XMS_ITS | Clinical Summary ---
Author Organization [facility] Address [address] [place] [address] Care Team Providers Care Repair Service Dispatcher Name Role Phone Douglas Juarez MD Primary Care Provider [phone] Allergies Active Allergy Reactions Criticality Noted Date Comments Atorvastatin Hallucinations Medium 10/10/2016 Elemental Sulfur Rash Low 10/10/2016 Oxycodone Hallucinations Medium 10/10/2016 Penicillin G Hives,Rash Medium 03/09/2014 Sulfacetamide Hives Medium 03/09/2014 Medications BIOTIN PO 7 Active amLODIPine (Norvasc) 5 MG tablet Take by mouth 2 (two) times a day. 7 Active cholecalciferol (Vitamin D-3) 125 MCG (5000 UT) capsule 1 (one) time each day. 7 Active insulin NPH-insulin regular (NovoLIN 70/30) (70-30) 100 UNIT/ML injection 9 Active QUEtiapine (SEROquel) 25 MG tablet 7 Active raNITIdine (Zantac) 75 MG tablet TAKE 1 TABLET EVERY 12 HOURS DAILY. 7 Active amitriptyline (Elavil) 50 MG tablet 1 Active Eliquis 5 MG tablet 1 Active Multaq 400 MG tablet Take by mouth 2 (two) times a day with meals. 1 Active rosuvastatin (Crestor) 20 MG tablet 1 Active Xiidra 5 % solution 0 Active denosumab (Prolia) 60 MG/ML injectionIndicat ions:Osteoporosi s,Postmenopausal Osteoporosis Inject 1 mL (60 mg total) under the skin 1 (one) time for 1 dose. 1 mL 1 1 Active metoprolol tartrate (Lopressor) 25 MG tablet Take by mouth 2 (two) times a day. 1 Active Jardiance 25 MG Take by mouth 1 (one) time each day. 2 Active famotidine (Pepcid) 20 MG tablet Take by mouth. Activ e furosemide (Lasix) 20 MG tablet Take 1 tablet (20 mg total) by mouth 2 (two) times a day. 180 tablet 3 2 Active amLODIPine (Norvasc) 10 MG tablet Take 0.5 tablets (5 mg) by mouth 1 (one) time each day. Patient taking 1/2 tablet daily of 10 mg tablet 3 Active Antifungal, Clotrimazole, 1 % cream 3 Active clotrimazole (Lotrimin) 1 % cream Apply 1 Application topically twice a day. 3 Active Active Problems Problem Noted Date Diagnosed Date Chronic kidney disease, stage III (moderate) Mild vitamin D deficiency 10/17/2016 Osteoporosis 10/17/2016 Diabetes mellitus type 2, uncontrolled 7 Hypertension 10/10/2016 Immunizations Immunization Administration Dates Next Due Influenza, high-dose, quadrivalent 04/22/2022 Influenza, injectable, quadrivalent, preservativ e free 04/14/2023 Influenza, seasonal, injectable 04/14/2023 Rsvpref, Recombinant, Protein Subunit, Adjuvent 05/12/2023 Zoster, Recombinant 02/10/2023 Family History Medical History Relation Name Comments Stroke Father Relation Name Status Comments Father Social History Tobacco Use Types Packs/Day Years Used Date Smoking Tobacco: Never Smokeless Tobacco: Never Tobacco Cessation:Counseling Given: Not Answered Comments Unknown Sex and Gender Information Value Date Recorded Sex Assigned at Not on file Legal Sex Female 8:30 PM EDT Gender Identity Not on file Sexual Orientation Not on file Last Filed Vital Signs Vital Sign Reading Time Taken Comments Blood Pressure 120/65 12/01/2023 11:56 AM EDT Pulse 66 12/01/2023 11:56 AM EDT Temperature - - Respiratory Rate 16 02/24/2023 10:47 AM EDT Oxygen Saturation 98% 12/01/2023 11:56 AM EDT Inhaled Oxygen Concentration - - Weight 65.3 kg (144 lb) 12/01/2023 11:56 AM EDT Height 162.6 cm (5' 4 ) 10/17/2016 1:46 PM EDT Body Mass Index 24.72 10/17/2016 1:46 PM EDT Plan of Treatment Health Maintenance Due Date Last Done Comments [facility]-Bone Density Scan 1945 [facility]-Depression Screening 1945 [facility]-Hepatitis C Screening 1945 [facility]-Infant/Child/Adol SDOH Screenings 1945 Diabetes: Dental Exam 1955 [facility]- SDOH Screenings 1963 [facility]-Adult SDOH Screenings 1963 [facility]-Pneumococcal Vaccine: 50+ Years (1 of 2 - PCV) 1964 [facility]-Zoster Vaccines (2 of 2) 04/07/2023 02/10/2023 [facility]-Diabetes: Hemoglobin A1C 04/21/2023 10/22/2022, 03/15/2014 [id number] Vaccine ( season) 2024 04/16/2021, 09/07/2020, 08/10/2020 [facility]-Medicare Annual Wellness (AWV) 04/25/2024 04/25/2023, 01/18/2022 [facility]-Influenza Vaccine (#1) 02/14/202503/22, 04/14/2023, 04/14/2023, Additional history exists [facility]-DTaP,Tdap,and Td Vaccines (2 - Td or Tdap) 02/08/2034 02/09/2024 [facility]-RSV Vaccine: 60+ Years or Completed 05/12/2023 HPV Vaccines Aged Out No longer eligi ble based on patient's age to complete this topic [facility]-HIB Vaccines Aged Out No longer e ligible based on patient's age to complete this topic [facility]-Hepatitis A Vaccines Aged Out No longer eligible based on patient's age to complete this topic [facility]-IPV Vaccines Aged Out No longer e ligible based on patient's age to complete this topic [facility]-Rotavirus Vaccines Aged Out No lo nger eligible based on patient's age to complete this topic Procedures Procedure Name Priority Date/Time Associated Diagnosis Comments HEMOGLOBIN A1C Routine 03/15/2014 4:59 PM EDT from Last 3 Months or Most Recently Relevant to Health Maintenance Results * (ABNORMAL) Hemoglobin A1c (03/15/2014 4:59 PM EDT) Hemoglobin A1c 7.2(H) 4.7 - 6.0 % [facility] Comment: (NOTE) Glycohemoglobin, 0 years and up: 4.7 - 6.0% . HbA1c assay performed by an ion-exchange chromatography method that is certified traceable to the DCCT. 03/15/2014 4:59 PM EDT 03/15/2014 5:04 PM EDT Alberto Guidry APRN LAB BLOOD ORDERABLES Final Result [facility] from Last 3 Months or Most Recently Relevant to Health Maintenance Insurance [employer] Care Teams Repair Service Dispatcher Relationship Specialty Start Date End Date Douglas Juarez MD [address] [place] [address] PCP - General 10/27/20
--- OUTSIDE RECORDS SUMMARY | 2024-12-16 12:48 | XMS_ITS | Encounter Summary ---
Author Organization Healthcare Address [address] [place] [address] Care Team Providers Care Document Management Analyst Name Role Phone Douglas Juarez MD Primary Care Provider [phone] Encounter Details Date Type Department Care Team (Late st Contact Info) Description 02/04/2023 Orders Only [facility] [address] [place] [address] Raven Boyd, PharmD [facility] [address] [place] [address] Social History Tobacco Use Types Packs/Day Years Used Date Smoking Tobacco: Never Smokeless Tobacco: Never Comments Unknown Sex and Gender Information Value Date Recorded Sex Assigned at Not on file Legal Sex Female 8:30 PM EDT Gender Identity Not on file Sexual Orientation Not on file documented as of this encounter Miscellaneous Notes * Addendum Note - Magaly Ochoa RN - 02/04/2023 9:10 AM EDTAddended by: MAGALY OCHOA on: 12/01/2024 06:26 PM Modules accepted: Orders documented in this encounter Plan of Treatment Not on file documented as of this encounter Visit Diagnoses Not on filedocumented in this encounter Care Teams Document Management Analyst Relationship Specialty Start Date End Date Douglas Juarez [place] [address] PCP - General 10/27/20 documented as of this encounter
== END 2024-12-14 23:59 | disposition home or self-care (01) ==
LOC: LAB.DROPOF 12-16 12:46
PROVIDERS: PCP Family Medicine; Visit Provider Family Medicine
DX: R00.2 Palpitations (principal); Z11.59 Encounter for screening for other viral diseases
CPT/HCPCS: 80048; 85025; 87340